=== PATIENT | male | born 1955 | race Caucasian/White ===

== ENCOUNTER 2023-08-27 08:07 | Day surgery (SDC) | payer OTHER, BC ==
[2023-08-23 12:44] VITALS: BMI 28.2
[2023-08-27 08:31] VITALS: RESP 16
[2023-08-27 10:08] VITALS: TEMP 96.6
[2023-08-27 10:23] VITALS: BP 122/81; PULSE 64
== END 2023-08-27 10:30 | disposition home or self-care (01) ==
LOC: FASU-ENDO 08:07
PROVIDERS: ATTEND Internal Medicine Gastroenterology
PROC: 0DBL8ZX Excision of Transverse Colon, Via Natural or Artificial Opening Endoscopic, Diagnostic (ICD-10-PCS; 2023-08-27)
PROC: 0DBN8ZX Excision of Sigmoid Colon, Via Natural or Artificial Opening Endoscopic, Diagnostic (ICD-10-PCS; 2023-08-27)
PROC: 0DBP8ZX Excision of Rectum, Via Natural or Artificial Opening Endoscopic, Diagnostic (ICD-10-PCS; 2023-08-27)
PROC: 0DBH8ZX Excision of Cecum, Via Natural or Artificial Opening Endoscopic, Diagnostic (ICD-10-PCS; principal; 2023-08-27 09:27)
DX: Z12.11 Encounter for screening for malignant neoplasm of colon (principal); D12.3 Benign neoplasm of transverse colon; D12.5 Benign neoplasm of sigmoid colon; K63.5 Polyp of colon; K62.1 Rectal polyp; D12.0 Benign neoplasm of cecum; K57.30 Diverticulosis of large intestine without perforation or abscess without bleeding; Z86.010 Personal history of colon polyps; Z83.719 Family history of colon polyps, unspecified
CPT/HCPCS: 88305-TC